=== PATIENT | male | born 1940 | race Caucasian/White ===

== ENCOUNTER 2023-10-01 15:01 | Inpatient (IN) | payer OTHER ==
[~2023-10-01] VITALS: Ht 170.2 cm; Wt 68.0 kg
[2023-10-01 15:29] VITALS: BP 111/62; PULSE 77; RESP 18; TEMP 97.6; O2SAT 97
[2023-10-01 16:05] LABS: EOSINOPHILS # (AUTO) 0.1 K/uL (0-0.4); EOSINOPHILS % (AUTO) 2.3 % (0.0-4.0); HEMOGLOBIN 12.5 g/dL (12.0-18.0); LYMPHOCYTES % (AUTO) 22.9 % (20.5-51.1); MEAN CORPUSCULAR HEMOGLOBIN 29 pg (27-31); MEAN CORPUSCULAR HGB CONC 33 g/dL (33-37); MEAN CORPUSCULAR VOLUME 87.9 fL (80-94); MONOCYTES # (AUTO) 0.5 K/uL (0.8-1.0); NEUTROPHILS # (AUTO) 2.9 K/uL (1.8-7.7); NEUTROPHILS % (AUTO) 63.8 % (42.2-75.2); PLATELET COUNT (AUTO) 166 K/uL (140-450); RED BLOOD CELL COUNT(AUTO) 4.32 MIL/uL (4.20-6.10); RED CELL DISTRIBUTION WIDTH 17.1 % (11.6-13.7); WHITE BLOOD COUNT (AUTO) 4.5 K/uL (4.8-10.8)
[2023-10-01 16:20] LABS: ANION GAP 11.6 (8-16); CALCIUM 8.9 mg/dL (8.5-10.1); CARBON DIOXIDE 28.1 mmol/L (21-32); CHLORIDE 91 mmol/L (98-107); CREATININE 1.1 mg/dL (0.6-1.3); POTASSIUM 4.7 mmol/L (3.5-5.1); SODIUM SERUM 126 mmol/L (136-145); UREA NITROGEN, BLOOD 24 mg/dL (7-18)
[2023-10-01 16:23] LABS: GLUCOSE 437 mg/dL (74-106)
[2023-10-01 16:38] LABS: APPEARANCE,URINE CLEAR (CLEAR); BILIRUBIN,URINE NEGATIVE (NEGATIVE); BLOOD, URINE NEGATIVE (NEGATIVE); COLOR,URINE YELLOW (YELLOW); LEUKOCYTE ESTERASE ,URINE NEGATIVE (NEGATIVE); NITRITE, URINE NEGATIVE (NEGATIVE); PROTEIN,URINE NEGATIVE (NEGATIVE); UGLUCOSE 2+ (NEGATIVE); UROBILINOGEN,URINE 0.2 EU/dL (0.2 - 1)
[2023-10-01] MEDS: INSULIN LISPRO 100 UNITS/ML VIAL SUBQ ONE (18:19)
[2023-10-01] MEDS: NACL 0.9% 1,000 ML IV ONE (18:37)
[2023-10-01 18:42] VITALS: O2SAT 97
[2023-10-01] MEDS ORDERED: DEXTROSE 50% 50 ML SYR IVP PRN (19:25)
[2023-10-01 20:01] LABS: CHOL/HDL RATIO 2.8 (1-4.5)
[2023-10-01] MEDS: NACL 0.9% 1,000 ML IV SCH (20:47)
[2023-10-01] MEDS: BLOOD GLUCOSE MONITORING 1 DEV DEV FS SCH (20:48)
[2023-10-01] MEDS ORDERED: APIX5TAB PO (20:58)
[2023-10-01] MEDS ORDERED: ICOS1SGL PO (20:58)
[2023-10-01] MEDS ORDERED: CLOP75TA55 PO (20:58)
[2023-10-01] MEDS ORDERED: ROSU40TA PO (20:58)
[2023-10-01] MEDS ORDERED: TAMS0.4C96 PO (20:58)
[2023-10-01] MEDS ORDERED: INSU100S22 SUBQ (20:58)
[2023-10-01] MEDS ORDERED: HUM SUBQ (20:58)
[2023-10-01] MEDS ORDERED: INSU300I2 SQ (20:58)
[2023-10-01] MEDS ORDERED: PROP20TA29 PO (20:58)
[2023-10-01] MEDS: INSULIN LISPRO SLIDING SCALE 100 UNITS/ML VIAL SUBQ PRN (21:06)
[2023-10-01 21:31] VITALS: BP 153/72; PULSE 68; RESP 19; TEMP 97.7; O2SAT 97
[2023-10-01 22:00] VITALS: O2SAT 97
[2023-10-01] MEDS: INSULIN LANTUS 100 UNITS/ML 10 ML VIAL SUBQ SCH (22:21)
[2023-10-01] MEDS ORDERED: HYDROcodone/APAP 10/325 MG 1 TAB TAB PO PRN (23:55)
[2023-10-01] MEDS ORDERED: hydrOXYzine PAMOATE 25 MG CAP PO PRN (23:55)
[2023-10-01] MEDS ORDERED: MORPHINE SULFATE 2 MG/ML SYR IVP PRN (23:55)
[2023-10-02] MEDS: ACETAMINOPHEN 325 MG TAB PO PRN (00:32)
[2023-10-02 04:00] VITALS: BP 155/68; PULSE 64; RESP 18; TEMP 97.9; O2SAT 98
[2023-10-02 06:24] LABS: BASOPHILS % (AUTO) 0.8 % (0.0-2.0); EOSINOPHILS # (AUTO) 0.1 K/uL (0-0.4); EOSINOPHILS % (AUTO) 2.6 % (0.0-4.0); HEMATOCRIT 36.1 % (36-52); LYMPHOCYTES # (AUTO) 1.5 K/uL (2.0-11.5); LYMPHOCYTES % (AUTO) 31.4 % (20.5-51.1); MEAN CORPUSCULAR HEMOGLOBIN 29 pg (27-31); MEAN CORPUSCULAR HGB CONC 33 g/dL (33-37); MEAN CORPUSCULAR VOLUME 86.9 fL (80-94); MONOCYTES # (AUTO) 0.4 K/uL (0.8-1.0); MONOCYTES % (AUTO) 9.2 % (1.7-9.3); NEUTROPHILS # (AUTO) 2.7 K/uL (1.8-7.7); PLATELET COUNT (AUTO) 151 K/uL (140-450); RED BLOOD CELL COUNT(AUTO) 4.16 MIL/uL (4.20-6.10); RED CELL DISTRIBUTION WIDTH 16.8 % (11.6-13.7); WHITE BLOOD COUNT (AUTO) 4.8 K/uL (4.8-10.8)
[2023-10-02 06:43] LABS: ALANINE AMINOTRANSFERASE 28 U/L (12-78); ALBUMIN 2.7 g/dL (3.4-5.0); ALKALINE PHOSPHATASE 196 U/L (50-136); ANION GAP 9.6 (8-16); ASPARTATE AMINOTRANSFERASE 23 U/L (15-37); CALCIUM 8.8 mg/dL (8.5-10.1); CARBON DIOXIDE 29.4 mmol/L (21-32); CHLORIDE 100 mmol/L (98-107); CREATININE 1.1 mg/dL (0.6-1.3); GLUCOSE 289 mg/dL (74-106); MAGNESIUM 1.7 mg/dL (1.8-2.4); PHOSPHORUS 3.1 mg/dL (2.5-4.9); SODIUM SERUM 135 mmol/L (136-145); TOTAL BILIRUBIN 0.8 mg/dL (0.0-1.0); TOTAL PROTEIN, SERUM 6.4 g/dL (6.4-8.2); UREA NITROGEN, BLOOD 19 mg/dL (7-18)
[2023-10-02 08:00] VITALS: BP 154/89; PULSE 92; RESP 18; TEMP 97.7; O2SAT 98
[2023-10-02 20:00] VITALS: BP 143/56; PULSE 89; RESP 18; TEMP 97.9; O2SAT 99
[2023-10-03 04:00] VITALS: BP 158/82; PULSE 95; RESP 16; TEMP 97.1; O2SAT 95
[2023-10-03 08:00] VITALS: PULSE 64; RESP 18; TEMP 97.1; O2SAT 97
[2023-10-03 16:00] VITALS: BP 142/60; PULSE 64; RESP 18; TEMP 98.3; O2SAT 96
[2023-10-03 20:00] VITALS: PULSE 75; RESP 18; TEMP 98; O2SAT 95
[2023-10-03] MEDS: INSULIN LANTUS 100 UNITS/ML 10 ML VIAL SUBQ SCH (21:22)
[2023-10-03] MEDS: INSULIN LISPRO 100 UNITS/ML VIAL SUBQ ONE (22:37)
[2023-10-04 04:00] VITALS: BP_SYST 137; BP_SYST 142; BP_DIAS 60; BP_DIAS 70; PULSE 64; PULSE 66; RESP 18; TEMP 97.1; TEMP 98.3; O2SAT 100; O2SAT 96
[2023-10-04 05:39] LABS: BASOPHILS % (AUTO) 0.8 % (0.0-2.0); EOSINOPHILS # (AUTO) 0.3 K/uL (0-0.4); EOSINOPHILS % (AUTO) 5.2 % (0.0-4.0); HEMATOCRIT 38.2 % (36-52); HEMOGLOBIN 12.8 g/dL (12.0-18.0); LYMPHOCYTES # (AUTO) 1.5 K/uL (2.0-11.5); LYMPHOCYTES % (AUTO) 28.9 % (20.5-51.1); MEAN CORPUSCULAR HEMOGLOBIN 29 pg (27-31); MEAN CORPUSCULAR HGB CONC 33 g/dL (33-37); MEAN CORPUSCULAR VOLUME 86.7 fL (80-94); MONOCYTES # (AUTO) 0.5 K/uL (0.8-1.0); MONOCYTES % (AUTO) 9.8 % (1.7-9.3); NEUTROPHILS # (AUTO) 2.9 K/uL (1.8-7.7); NEUTROPHILS % (AUTO) 55.3 % (42.2-75.2); PLATELET COUNT (AUTO) 156 K/uL (140-450); RED CELL DISTRIBUTION WIDTH 17.2 % (11.6-13.7); WHITE BLOOD COUNT (AUTO) 5.2 K/uL (4.8-10.8)
[2023-10-04 05:50] LABS: CALCIUM 9.5 mg/dL (8.5-10.1); CARBON DIOXIDE 30.5 mmol/L (21-32); CHLORIDE 101 mmol/L (98-107); GLUCOSE 55 mg/dL (74-106); POTASSIUM 3.5 mmol/L (3.5-5.1); SODIUM SERUM 137 mmol/L (136-145); UREA NITROGEN, BLOOD 18 mg/dL (7-18)
[2023-10-04 08:00] VITALS: PULSE 75; RESP 18; TEMP 98.5; O2SAT 100
[2023-10-04] MEDS ORDERED: INSU100S22 SUBQ (13:12)
[2023-10-04] MEDS ORDERED: AZIT250T4 PO (13:12)
[2023-10-04 16:00] VITALS: BP 146/68; PULSE 65; RESP 18; TEMP 98; O2SAT 100
== END 2023-10-04 20:20 | disposition short-term general hospital (02) | DRG 638 ==
LOC: MED 15:01 → MMU 19:24 → MTU 20:51
PROVIDERS: ADMIT Family Medicine; ATTEND Family Medicine
DX: E11.65 Type 2 diabetes mellitus with hyperglycemia (principal); E46 Unspecified protein-calorie malnutrition; I48.91 Unspecified atrial fibrillation; R62.7 Adult failure to thrive; Z88.2 Allergy status to sulfonamides; Z79.4 Long term (current) use of insulin; Z79.899 Other long term (current) drug therapy; Z68.23 Body mass index [BMI] 23.0-23.9, adult
CPT/HCPCS: 36415; 71045; 73000; 80048; 80053; 81003; 82948; 83036; 83735; 84100; 85025; 87081; 96372; 97163-GP; 97530; 99285; J1815; Q0092